=== PATIENT | female | born 2000 | race Hispanic/Latino ===

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

== ENCOUNTER 2020-03-22 18:24 | Emergency (ER) | payer MEDICAID, OTHER ==
[2020-03-22] MEDS ORDERED: ONDANSETRON 4 MG TABLET ONE (18:48)
[2020-03-22] MEDS ORDERED: CYCLOBENZAPRINE HCL 10 MG TABLET ONE (18:49)
[2020-03-22] MEDS ORDERED: HYDROCODONE/ACETAMINOPHEN 5/325 MG TAB ONE (18:49)
[2020-03-22 19:16] LABS: APPEARANCE,URINE Clear (CLEAR); BILIRUBIN,URINE Negative (NEGATIVE); COLOR,URINE Yellow (YELLOW); GLUCOSE, URINE (UA) Negative (NEGATIVE); KETONES,URINE Negative (NEGATIVE); LEUKOCYTE ESTERASE ,URINE Small (NEGATIVE); NITRATE,URINE Negative (NEGATIVE); OCCULT BLOOD,URINE Negative (NEGATIVE); PROTEIN,URINE Negative (NEGATIVE)
[2020-03-22 19:18] LABS: HCG,QUAL RESULT NEGATIVE (NEGATIVE)
[2020-03-22 19:56] LABS: RBC,URINE 0-1 /HPF (0-1)
[2020-03-22 19:57] LABS: BACTERIA,URINE Few /HPF (None Seen); SQUAMOUS EPITHELIAL CELL,UR Few /HPF (0-2)
[2020-03-22 19:58] LABS: MUCUS,URINE Few LPF (None Seen)
== END 2020-03-22 21:09 | disposition home or self-care (01) ==
LOC: EDH 18:24
DX: M62.830 Muscle spasm of back (principal); K21.9 Gastro-esophageal reflux disease without esophagitis; F41.9 Anxiety disorder, unspecified; F32.9 Major depressive disorder, single episode, unspecified; Z72.0 Tobacco use; V89.2XXA Person injured in unspecified motor-vehicle accident, traffic, initial encounter; Y93.89 Activity, other specified; Y92.488 Other paved roadways as the place of occurrence of the external cause; Y99.8 Other external cause status
CPT/HCPCS: 72040; 72070; 81001; 81025; 87077; 87088; 87186; 99284; Q0162

== ENCOUNTER 2023-03-05 14:56 | Observation (INO) | payer MEDICAID ==
[~2023-03-05] VITALS: Ht 165.1 cm; Wt 113.4 kg
[2023-03-05 14:57] VITALS: BP 138/84; PULSE 92; RESP 18
[2023-03-05] MEDS: LACTATED RINGERS 1000ML IV PRN ×2 (17:00→18:15)
[2023-03-05] MEDS ORDERED: ACETAMINOPHEN 325 MG TAB PO PRN (21:00)
[2023-03-06] MEDS: LACTATED RINGERS 1000ML IV PRN (01:14)
== END 2023-03-06 08:15 | disposition home or self-care (01) ==
LOC: EDH 14:56 → LDH 14:57
PROVIDERS: ADMIT Obstetrics & Gynecology; ATTEND Obstetrics & Gynecology
DX: O41.03X0 Oligohydramnios, third trimester, not applicable or unspecified (principal); Z3A.38 38 weeks gestation of pregnancy
CPT/HCPCS: 96361 ×5; 96360; 76819; 76805; G0378 ×17; G0379; J7120 ×2

== ENCOUNTER 2023-08-06 10:42 | Emergency (ER) | payer MEDICAID ==
[~2023-08-06] VITALS: Ht 165.1 cm; Wt 119.7 kg
[2023-08-06 11:29] LABS: BASOPHILS # (AUTO) 0.02 K/uL (0.00-0.20); BASOPHILS % (AUTO) 0.3 % (0.0-5.0); EOSINOPHILS # (AUTO) 0.22 K/uL (0.00-0.70); EOSINOPHILS % (AUTO) 3.5 % (0.0-8.0); HEMATOCRIT 41.5 % (36-48); IMMATURE GRANULOCYTE ABSOLUTE 0.02 K/uL (0-1); LYMPHOCYTES # (AUTO) 1.9 K/uL (1.0-4.8); LYMPHOCYTES % (AUTO) 29.3 % (21.0-51.0); MEAN CORPUSCULAR HEMOGLOBIN 30.9 pg (27.0-33.0); MEAN CORPUSCULAR HGB CONC 34.2 g/dL (32.0-36.0); MEAN CORPUSCULAR VOLUME 90.4 fL (79-99); MONOCYTES # (AUTO) 0.5 K/uL (0.1-1.0); MONOCYTES % (AUTO) 7.3 % (3.0-13.0); NEUTROPHILS # (AUTO) 3.7 K/uL (1.8-7.7); NEUTROPHILS % (AUTO) 59.3 % (40.0-77.0); PLATELET COUNT (AUTO) 254 K/uL (130-400); RED BLOOD CELL COUNT(AUTO) 4.59 MIL/uL (4.00-5.50); RED CELL DISTRIBUTION WIDTH 12.4 % (11.0-15.5); WHITE BLOOD COUNT (AUTO) 6.3 K/uL (4.8-10.8)
[2023-08-06 12:08] LABS: ALBUMIN 3.4 g/dL (3.5-5.0); BILIRUBIN,TOTAL 0.2 mg/dL (0.2-1.0); CREATININE 0.6 mg/dL (0.5-1.5); TOTAL PROTEIN, SERUM 7.1 g/dL (6.0-8.3)
[2023-08-06 13:17] LABS: APPEARANCE,URINE CLEAR (CLEAR); BILIRUBIN,URINE NEGATIVE (NEGATIVE); COLOR,URINE LIGHT-YELLOW (YELLOW); GLUCOSE, URINE (UA) NEGATIVE (NEGATIVE); KETONES,URINE NEGATIVE (NEGATIVE); LEUKOCYTE ESTERASE ,URINE NEGATIVE Leu/uL (NEGATIVE); NITRATE,URINE NEGATIVE (NEGATIVE); OCCULT BLOOD,URINE LARGE (NEGATIVE); PH,URINE 5.5 (5.0-8.0); PROTEIN,URINE NEGATIVE (NEGATIVE); UROBILINOGEN,URINE 0.2 mg/dL (0.2-1.0)
[2023-08-06 13:19] LABS: ADD UA MICROSCOPIC YES
[2023-08-06 13:24] LABS: MUCUS,URINE RARE LPF (None Seen); SQUAMOUS EPITHELIAL CELL,UR RARE /HPF (0-2)
[2023-08-06 14:10] VITALS: BP 108/70; PULSE 69; RESP 16; O2SAT 99
== END 2023-08-06 14:13 | disposition home or self-care (01) ==
LOC: EDH 10:42
DX: O02.0 Blighted ovum and nonhydatidiform mole (principal); Z3A.10 10 weeks gestation of pregnancy
CPT/HCPCS: 36415; 76801; 80053; 81001; 84702; 85025; 86900; 86901

== ENCOUNTER 2023-08-07 20:51 | Emergency (ER) | payer MEDICAID ==
[~2023-08-07] VITALS: Ht 165.1 cm; Wt 120.2 kg
[2023-08-07 22:28] LABS: BASOPHILS # (AUTO) 0.02 K/uL (0.00-0.20); BASOPHILS % (AUTO) 0.2 % (0.0-5.0); EOSINOPHILS # (AUTO) 0.18 K/uL (0.00-0.70); EOSINOPHILS % (AUTO) 1.6 % (0.0-8.0); IMMATURE GRANULOCYTE ABSOLUTE 0.05 K/uL (0-1); LYMPHOCYTES # (AUTO) 1.8 K/uL (1.0-4.8); LYMPHOCYTES % (AUTO) 15.9 % (21.0-51.0); MEAN CORPUSCULAR HEMOGLOBIN 30.7 pg (27.0-33.0); MEAN CORPUSCULAR HGB CONC 34.4 g/dL (32.0-36.0); MEAN CORPUSCULAR VOLUME 89.3 fL (79-99); MONOCYTES # (AUTO) 0.6 K/uL (0.1-1.0); MONOCYTES % (AUTO) 5.7 % (3.0-13.0); NEUTROPHILS # (AUTO) 8.5 K/uL (1.8-7.7); NEUTROPHILS % (AUTO) 76.2 % (40.0-77.0); PLATELET COUNT (AUTO) 272 K/uL (130-400); RED BLOOD CELL COUNT(AUTO) 4.59 MIL/uL (4.00-5.50); RED CELL DISTRIBUTION WIDTH 12.5 % (11.0-15.5); WHITE BLOOD COUNT (AUTO) 11.2 K/uL (4.8-10.8)
[2023-08-07] MEDS ORDERED: LACTATED RINGERS 1000ML 1,000 ML IV SCH (22:30)
[2023-08-07] MEDS ORDERED: ONDANSETRON 4MG INJ IVP STA (22:35)
[2023-08-07 22:36] LABS: CREATININE 0.7 mg/dL (0.5-1.5); POTASSIUM 3.9 mmol/L (3.5-5.1)
[2023-08-07 23:02] LABS: ALBUMIN 3.8 g/dL (3.5-5.0); BILIRUBIN,TOTAL 0.2 mg/dL (0.2-1.0); TOTAL PROTEIN, SERUM 7.6 g/dL (6.0-8.3)
[2023-08-07 23:07] VITALS: BP 123/71; PULSE 80; RESP 16; O2SAT 98
[2023-08-07 23:25] LABS: APPEARANCE,URINE CLEAR (CLEAR); BILIRUBIN,URINE SMALL mg/dL (NEGATIVE); COLOR,URINE YELLOW (YELLOW); GLUCOSE, URINE (UA) 100 mg/dL (NEGATIVE); KETONES,URINE 15 mg/dL (NEGATIVE); LEUKOCYTE ESTERASE ,URINE MODERATE Leu/uL (NEGATIVE); NITRATE,URINE POSITIVE (NEGATIVE); OCCULT BLOOD,URINE LARGE (NEGATIVE); PROTEIN,URINE >=300 mg/dL (NEGATIVE)
[2023-08-07 23:26] LABS: ADD UA MICROSCOPIC YES
[2023-08-07 23:34] LABS: MUCUS,URINE MANY LPF (None Seen); RBC,URINE TNTC /HPF (0-1)
== END 2023-08-07 23:48 | disposition home or self-care (01) ==
LOC: EDH 20:51
DX: O02.1 Missed abortion (principal); Z3A.09 9 weeks gestation of pregnancy
CPT/HCPCS: 99285; 96374; 76801; 96361; 80053; 84702; 85025; 86850; 86900; 86901; 87088; 81001; 36415 ×2; J7120 ×2; J2405

== ENCOUNTER 2023-08-09 06:54 | Day surgery (SDC) | payer MEDICAID ==
[2023-08-08 14:15] LABS: BASOPHILS # (AUTO) 0.02 K/uL (0.00-0.20); BASOPHILS % (AUTO) 0.2 % (0.0-5.0); EOSINOPHILS # (AUTO) 0.25 K/uL (0.00-0.70); HEMATOCRIT 39.7 % (36-48); IMMATURE GRANULOCYTE ABSOLUTE 0.02 K/uL (0-1); LYMPHOCYTES % (AUTO) 23.7 % (21.0-51.0); MEAN CORPUSCULAR HEMOGLOBIN 30.5 pg (27.0-33.0); MEAN CORPUSCULAR HGB CONC 33.5 g/dL (32.0-36.0); MEAN CORPUSCULAR VOLUME 91.1 fL (79-99); MONOCYTES # (AUTO) 0.6 K/uL (0.1-1.0); MONOCYTES % (AUTO) 7.5 % (3.0-13.0); NEUTROPHILS # (AUTO) 5.5 K/uL (1.8-7.7); NEUTROPHILS % (AUTO) 65.4 % (40.0-77.0); PLATELET COUNT (AUTO) 243 K/uL (130-400); RED BLOOD CELL COUNT(AUTO) 4.36 MIL/uL (4.00-5.50); RED CELL DISTRIBUTION WIDTH 12.6 % (11.0-15.5); WHITE BLOOD COUNT (AUTO) 8.4 K/uL (4.8-10.8)
[2023-08-08 14:49] VITALS: BP 124/71; PULSE 71; RESP 18
[~2023-08-09] VITALS: Ht 165.1 cm; Wt 119.9 kg
[2023-08-09 07:11] VITALS: BP 111/74; PULSE 90; RESP 16
[2023-08-09] MEDS ORDERED: CEFAZOLIN SODIUM 2 GM VIAL ONE (07:34)
[2023-08-09] MEDS ORDERED: LACTATED RINGERS 1000ML 1,000 ML IV ONE (07:34)
[2023-08-09] MEDS ORDERED: MISOPROSTOL 200 MCG TABLET ONE (07:34)
[2023-08-09] MEDS ORDERED: METHYLERGONOVINE MALEATE 0.2 MG/1 ML ML ONE (07:34)
[2023-08-09] MEDS ORDERED: ROCURONIUM BROMIDE 10MG/1ML 5ML VL ONE (08:36)
[2023-08-09] MEDS ORDERED: MIDAZOLAM HCL 1 MG/ML 2ML VIAL ONE (08:37)
[2023-08-09] MEDS ORDERED: ONDANSETRON 4MG INJ ONE (08:37)
[2023-08-09] MEDS ORDERED: PROPOFOL 10 MG/ML 20ML VIAL IV ONE (08:37)
[2023-08-09] MEDS ORDERED: SUCCINYLCHOLINE CHLORIDE 20 MG/ML 10 ML VIAL ONE (08:37)
[2023-08-09] MEDS ORDERED: MEPERIDINE-PF 50 MG/ML SYG ONE (08:38)
[2023-08-09] MEDS ORDERED: CEFAZOLIN SODIUM 2 GM VIAL IVPB ONE (08:46)
[2023-08-09] MEDS ORDERED: OXYTOCIN 10 USP UNITS/ML ONE (08:59)
[2023-08-09] MEDS ORDERED: DEXAMETHASONE SOD PHOSPHATE 10MG/ML 1ML VIAL ONE (09:04)
[2023-08-09 10:40] VITALS: BP 112/68; PULSE 79; RESP 16
[2023-08-09 10:45] VITALS: BP 109/62; PULSE 72; RESP 16
[2023-08-09 10:50] VITALS: BP 107/42; PULSE 62; RESP 16
[2023-08-09 11:00] VITALS: BP 115/47; PULSE 77; RESP 16
== END 2023-08-09 11:00 | disposition home or self-care (01) ==
LOC: DAH 06:54
PROVIDERS: ATTEND Obstetrics & Gynecology
DX: O02.0 Blighted ovum and nonhydatidiform mole (principal); E66.01 Morbid (severe) obesity due to excess calories
CPT/HCPCS: 84703; 85025; 36415; 59820; 86850; 86900; 86901; 88305; A6260; A4663; J7030; A4351 ×2; J7120; J1100; J0330; J3490 ×2; J2250; J2590; J2405; J2175; J0690 ×2; A4215; A4223; A4213; A4222; A4221; A4600; J2210; J2704

== ENCOUNTER 2023-08-20 23:26 | Emergency (ER) | payer MEDICAID ==
[~2023-08-20] VITALS: Ht 165.1 cm; Wt 120.2 kg
[2023-08-21 02:21] VITALS: BP 148/76; PULSE 87; RESP 18; O2SAT 98
[2023-08-21] MEDS ORDERED: CYCL-309 PO (02:35)
[2023-08-21] MEDS ORDERED: IBUP-1493 PO (02:35)
[2023-08-21] MEDS ORDERED: KETOROLAC 60 MG VIAL (30MG/ML) IM ONE (03:00)
[2023-08-21] MEDS ORDERED: CYCLOBENZAPRINE HCL 10 MG TABLET PO ONE (03:00)
== END 2023-08-21 03:05 | disposition home or self-care (01) ==
LOC: EDH 23:26
DX: M54.50 Low back pain, unspecified (principal)
CPT/HCPCS: 99284; 96372; J1885